=== PATIENT | female | born 1995 | race African-American/Black ===

== ENCOUNTER 2017-06-08 10:58 | Outpatient (CLI) | END 2017-06-08 13:35 | disposition home or self-care (01) ==

== ENCOUNTER 2017-06-20 11:22 | Outpatient (CLI) | payer OTHER ==
--- NOTE | 2017-06-08 13:45 | PN ---
Triage Information Date/Time Reason for visit: Abd/pelvic pain Weeks of Gestation 37+ /Para 2/0 Diabetes: none Hypertention: none Objective Heart Rate: 140's Contractions: None Disposition: Discharge Assessment/Plan No Abdominal tenderness or Epigastric pain at this time Labs reviewed No urinary symptoms Patient will see her provider in the Office today BARBARA SMITH M.D. Jun 08, 2017 13:45
[~2017-06-20] VITALS: Ht 162.6 cm; Wt 69.0 kg
[~2017-06-20 11:22] MED LIST: PNV11TAB PO
[2017-06-20 12:01] VITALS: BP 104/59; PULSE 54; RESP 18; Ht 162.6 cm; Wt 69.0 kg
--- NOTE | 2017-06-20 13:02 | RADRPT ---
PROCEDURE: US biophysical profile. CLINICAL INDICATION: Decreased motion. TECHNIQUE: Multiple sonographic images of the uterus were obtained. The images were revi ewed on a PACS workstation. COMPARISON: 06/08/2017. FINDINGS: There is a single live intrauterine gestation. heart rate is 124 beats per minute. The position is cephalic. The placenta is fundal grade 1 with no abruption or previa. The MADELINE is 14.3 cm. (Normal = 5-20 cm.) Breathing Movement: 2 Gross Body Movement: 2 Tone: 2 Qualitative Amniotic Fluid Volume: 2 TOTAL: 8 IMPRESSION: 1. The biophysical score is 8/8. RPTAT: QQ .Niranjan Mcarthur MD, MD Date Time Electronically viewed and signed by .Niranjan Mcarthur MD, on 06/20/2017 13:02 .R/
--- NOTE | 2017-06-20 14:03 | TRIAGE ---
OB Triage Datetime Report Generated by CPN: 06/20/2017 14:03 Datetime: 06/20/2017 12:54 Stage of : OB Triage Maternal Assessment Level of Consciousness: Fully Conscious DTR's/Clonus: DTRs 1+ Headache: Denies Breath Sounds, Left: Clear and Equal Breath Sounds, Right: Clear and Equal Nausea/Vomiting: Denies Labor Evaluation Frequency: 5-8 Monitor Mode: External Duration (sec)2399: 50-80 Quality: Mild Pattern: Normal: <= 5 Contractions in 10 Minutes Resting Tone [employer]: Relaxed Heart Rate FHR Baseline Rate: 120 Monitor Mode: External US Variability: Moderate 6-25 bpm Accelerations: 15X15 Decelerations: None Category: Category I Pain Assessment Pain Scale: 0 Pain Presence: None/Denies Pain Type: N/A Pain Goal: 3 Vaginal Exam Membrane Status: Intact Datetime: 06/20/2017 11:58 Maternal Assessment Level of Consciousness: Fully Conscious DTR's/Clonus: DTRs 1+ Headache: Denies Blurred Vision: No Respiratory Effort: Unlabored Breath Sounds, Left: Clear and Equal Breath Sounds, Right: Clear and Equal Nausea/Vomiting: Denies Facial Edema: None Labor Evaluation Frequency: 5-10 Monitor Mode: External Duration (sec)2399: 50-80 Quality: Mild Pattern: Normal: <= 5 Contractions in 10 Minutes Resting Tone [employer]: Relaxed Heart Rate FHR Baseline Rate: 120 Monitor Mode: External US Variability: Moderate 6-25 bpm Accelerations: 15X15 Decelerations: None Category: Category I Pain Assessment Pain Scale: 0 Pain Presence: None/Denies Pain Type: N/A Pain Goal: 3 Vaginal Exam Membrane Status: Intact Datetime: 06/20/2017 11:13 Time of Arrival: 06/20/2017 11:13 EGA: 38.6 Arrived By: Ambulatory Arrived From: Office Chief Complaint: PT CAME IN FROM [facility] FOR NST AND BPP FOR DFM Movement: Present Contractions: Denies/Absent Rupture of Membranes: Denies Vaginal Discharge: Denies Recent Sexual Intercouse: Denies Abdominal Trauma: Not Applicable Additional Patient Complaints: NONE Time Provider Notified: 06/20/2017 11:13 Provider Notified: DELSHAD Initial Plan: NST AND BPP AND VE Datetime: 06/08/2017 11:17 EGA: 37.1 Datetime: 06/08/2017 11:10 Fall Risk Assessment Fall Score: 0 Fall Risk Score Definition: No Risk: No action required
--- NOTE | 2017-06-20 16:47 | PN ---
Triage Information Date/Time June 20, 2017 Reason for visit: DFM Weeks of Gestation 38 weeks and 6 days /Para 1 para 0 Diabetes: none Hypertention: none Additional information 22-year-old with IUP at 38 weeks and 6 days presented with complaint of decreased movement. Denies any other complaints. Denies any complications during her course. Objective Vital Signs Date Time Temp Pulse Resp B/P Pulse Ox O2 Delivery O2 Flow Rate FiO2 06/20/17 12:01 98.2 54 18 104/59 99 Room Air Heart Rate: 130's Heart Rate Comments Category 1 Contractions: None Exam General appearance: Alert and oriented 4 and does not appear to be in any acute distress. Abdomen: Soft, gravid, fundal height consistent with gestational age. BPP: 8/8 NST: Category 1 Cervical exam: Cervix closed and long and high PROCEDURE: US biophysical profile. CLINICAL INDICATION: Decreased motion. TECHNIQUE: Multiple sonographic images of the uterus were obtained. The images were reviewed on a PACS workstation. COMPARISON: 06/08/2017. FINDINGS: There is a single live intrauterine gestation. heart rate is 124 beats per minute. The position is cephalic. The placenta is fundal grade 1 with no abruption or previa. The MADELINE is 14.3 cm. (Normal = 5-20 cm.) Breathing Movement: 2 Gross Body Movement: 2 Tone: 2 Qualitative Amniotic Fluid Volume: 2 TOTAL: 8 IMPRESSION: 1. The biophysical score is 8/8. RPTAT: QQ Disposition: Discharge Assessment/Plan IUP at 38 weeks and 6 days Not in labor Decreased movement. testing including NST and BPP reassuring DC home Follow-up within 24-48 hours post primary OB with strict labor precaution and kick counts Return to triage with Any other complaint. MERYL RUVALCABA MD Jun 20, 2017 16:47
== END 2017-06-20 13:59 | disposition home or self-care (01) ==
LOC: L-D 11:22 → OBT 11:22
PROVIDERS: ATTEND Obstetrics & Gynecology
DX: O36.8130 Decreased fetal movements, third trimester, not applicable or unspecified (principal); Z3A.38 38 weeks gestation of pregnancy
CPT/HCPCS: 76818; Z7500; G0463